=== PATIENT | female | born 1960 | race Caucasian/White ===

== ENCOUNTER 2024-02-25 06:10 | Day surgery (SDC) | payer MEDICARE, SELFPAY ==
[2024-02-20 14:08] VITALS: BMI 28.3
[2024-02-25] MEDS: Tetracaine HCl/PF 0.5% Oph Sol 4 ML DROPS 1 DROP EYE-LEFT (06:39)
[2024-02-25] MEDS: Cyclopentolate 1 % Ophth Sol 2 ML DRPBTL 1 DROP EYE-LEFT ×3 (06:40→06:56)
[2024-02-25] MEDS: Tropicamide 1 % Ophth Sol 3 ML BTL 1 DROP EYE-LEFT ×3 (06:42→06:58)
[2024-02-25] MEDS: Ketorolac Tromethamine 0.5% Op 10 ML DROPS 1 DROP EYE-LEFT ×3 (06:44→07:00)
[2024-02-25] MEDS: Phenylephrine HCL 2.5% Oph SoL 2 ML BOTTLE 1 DROP EYE-LEFT ×3 (06:46→07:02)
[2024-02-25 06:54] VITALS: BP 165/96; PULSE 80; RESP 16; TEMP 36.7; O2SAT 95
[2024-02-25] MEDS: Lactated Ringers 1,000 ML 80 ML IVCONT (06:59)
--- NOTE | 2024-02-25 07:07 | P.CONAN_ITS ---
[facility] Past Medical History Medical History Arthritis Seasonal allergies Umbilical hernia Hiatal hernia History of endometrial biopsy History of cystocele Paraesophageal hernia Low back pain Iron deficiency anemia due to chronic blood loss Hypothyroidism Hypertension Hyperlipidemia Hemorrhoid Depression Cricopharyngeal dysphagia GERD (gastroesophageal reflux disease) Cataracts, bilateral Surgical History Surgical History Hx of breast biopsy Hx of vaginal hysterectomy Hx of colonoscopy Hx of tubal ligation Hx of arthroscopy of knee History of repair of rectocele (~2020) History of esophagogastroduodenoscopy (EGD) History of Problems with Anesthesia: No Social History Social History Are you a primary adult daycare coordinator to a significant other at home: No Do you presently have visiting nurse or other home services: No Patient Tobacco Use Status: Never used Tobacco Use of substances other than those prescribed or required for medical reasons: No Have you been hit, kicked, punched, or otherwise hurt by someone within the past year? If so, by whom?: No Are you DNR?: No Advance Directives: No Advance Directives Information Provided: Yes Advance Directives on File: No Recently lost weight without trying: No Nutrition Risks: No Nutritional Risk Poor oral hygiene: No Meds Allergies Allergy/AdvReac Type Severity Reaction Status Date / Time codeine [CODEINE] Allergy Severe nausea, Verified 02/25/24 06:37 vomiting, headache heparin Allergy Severe Hives, Verified 02/25/24 06:37 itching morphine [MORPHINE] Allergy Severe hives, Verified 02/25/24 06:37 itching Active Medications: Current Medications Lactated Ringer's (Lr) 1,000 mls @ 80 mls/hr IVCONT .[id number] Last Admin: 02/25/24 06:59 Dose: 80 mls/hr Povidone Iodine (Povidone Iodine 5 % Ophth Soln 30 Ml Bottle) 1 appl EYE-LEFT PREOP PRN PRN Reason: Pre-Op Surgical Implant Prophy Home Medications ?Medication ?Instructions ?Recorded ?Confirmed ?Last Taken ?Type dicyclomine 10 mg capsule 10 mg PO TID 02/20/24 02/20/24 Unknown History estradiol 0.0375 mg/24 hr 1 patch topical 2XW 02/20/24 02/20/24 Unknown History semiweekly transdermal patch famotidine 20 mg tablet (Pepcid) 20 mg PO BEDTIME PRN Gastric Reflux 02/20/24 02/20/24 Unknown History levothyroxine 150 mcg tablet 150 mcg PO DAILY 02/20/24 02/25/24 02/25/24 History lisinopril 20 mg tablet 20 mg PO DAILY 02/20/24 02/20/24 Unknown History omeprazole 20 mg tablet,delayed 20 mg PO DAILY 02/20/24 02/25/24 02/25/24 History release sertraline 50 mg tablet 75 mg PO DAILY 02/20/24 02/25/24 02/25/24 History Exam Height,Weight and Vital Signs: Height 5 ft 4 in Weight 74.843 kg Last Vital Signs Temp 98.1 F 02/25/24 06:54 Pulse 80 02/25/24 06:54 Resp 16 02/25/24 06:54 BP 165/96 H 02/25/24 06:54 Pulse Ox 95 02/25/24 06:54 O2 Del Method Room Air 02/25/24 06:54 Airway Mallampati Class: II TM Dist: >3cm Neck ROM: Full Loose/Missing/Broken Teeth: No Heart: RRR Lungs: CTA Assessment and Plan Assessment Anesthesia Assessment: Anesthesia Plan Discussed and Chart Reviewed Final Anesthetic Review History of Problems with Anesthesia: No NPO: Yes ASA Class: II Final Preanesthetic Review: Meds/Allgs Chart Reviewed, Consent Obtained/Reviewed and Anes Risks/Benef Reviewed Patient Risk: Low Procedure Risk: Low Anesthetic Plan Anesthetic Plan: MAC: Disposition: Standard PACU
--- NOTE | 2024-02-25 07:25 | MHC.SHP ---
Pre-Procedural Eval Section A - 24 Hr Update-Section A only Date of Service: 02/25/24 The patient is an INPATIENT: No Changes since office visit: No Cold of Flu in the past 2 weeks, No New Medical Problems, No Changes in Medication and No Patient answered all questions The patient has been examined within 24 hours of the surgical procedure. The History & Physical has been completed within 30 days and I have reviewed it.: Yes Section B - Complete if H&P > 30 days Chief Complaint: Age-related nuclear cataract, left eye Allergies: Allergies Allergy/AdvReac Type Severity Reaction Status Date / Time codeine [CODEINE] Allergy Severe nausea, Verified 02/25/24 06:37 vomiting, headache heparin Allergy Severe Hives, Verified 02/25/24 06:37 itching morphine [MORPHINE] Allergy Severe hives, Verified 02/25/24 06:37 itching Plan Diagnosis/Plan: Unchanged I have reviewed the history and physical and performed a pertinent physical examination on my patient. No changes have occurred unless specified. Time Spent With Patient Time: Total time managing care of this patient today ____ minutes.
--- NOTE | 2024-02-25 07:26 | HO.PNOPHT ---
Ophthalmology Procedure Procedure Date of Service: 02/25/24 Ophthalmology Viscoelastic: Healon Duet Dual Pack Pro Ophthalmology Lenses: IOL Acrysof MP - MA60AC (21) Procedure Notes: PREOPERATIVE DIAGNOSIS: Decreased visual acuity left eye secondary to cataract POSTOPERATIVE DIAGNOSIS: Same PROCEDURE: Left cataract extraction with intraocular lens insertion SURGEON: Rudi Miramontes M.D. ANESTHESIA: Topical/MAC ESTIMATED BLOOD LOSS: None COMPLICATIONS: None After obtaining informed consent, the patient was brought to the operation room suite and placed in the supine position. After adequate sedation per anesthesia, topical drops of Tetracaine were given to the left eye. The eye was then prepped and draped in the usual sterile fashion. The operating room microscope was then positioned over the operative eye and a lid speculum placed. A paracentesis was created. Viscoelastic was then instilled into the anterior chamber. A three plane incision was then created temporally, utilizing a 2.85 mm keratome. Capsulotomy forceps were then utilized to create a circular tear capsulotomy. Hydrodissection and hydrodelineation were carried out until adequate mobilization of the nucleus occurred. Phacoemulsification was then utilized to remove the dense central nucleus followed by removal of the cortical material utilizing the automated aspiration irrigation unit. Viscoat elastic was instilled into the posterior capsular bag followed by placement of a posterior chamber intraocular lens without difficulty. The residual Viscoat elastic was then removed utilizing the automated IA machine. The wound was check and found to be watertight. The patient tolerated the procedure well and the lid speculum was removed. Intracameral injection of Vigamox 0.1 mL followed by a subtenon injection of Kenalog-40 0.2 mL were administered. The patient will be seen in the a.m.
[2024-02-25 08:04] VITALS: BP 152/96; PULSE 72; RESP 17; TEMP 36.2; O2SAT 94
== END 2024-02-25 08:09 | disposition home or self-care (01) ==
PROVIDERS: PCP Internal Medicine; Visit Provider Ophthalmology
PROC: (CPT 66985; principal; 2024-02-25 07:30)
DX: H25.12 Age-related nuclear cataract, left eye (principal); H52.4 Presbyopia; H35.09 Other intraretinal microvascular abnormalities; H18.413 Arcus senilis, bilateral; H43.393 Other vitreous opacities, bilateral; H35.372 Puckering of macula, left eye; I10 Essential (primary) hypertension; E78.00 Pure hypercholesterolemia, unspecified; E07.9 Disorder of thyroid, unspecified; Z79.899 Other long term (current) drug therapy; Z88.5 Allergy status to narcotic agent; Z88.8 Allergy status to other drugs, medicaments and biological substances
CPT/HCPCS: 66984; J2250; J3010; J3301; V2630

== ENCOUNTER 2024-03-10 06:56 | Day surgery (SDC) | payer MEDICARE, SELFPAY ==
[2024-02-20 14:11] VITALS: BMI 28.3
--- NOTE | 2024-03-07 10:16 | P.CONAN_ITS ---
Documented by User: Tatiana Hurd NP 03/07/24 10:16 HPI - Anesthesia Eval Consult details Narrative: 64yo F for Right Cataract Extraction IOL Insertion Left eye 02/25/24: Fent 50, Midaz 2 PMFSH Past Medical History Medical History Arthritis Seasonal allergies Umbilical hernia Hiatal hernia History of endometrial biopsy History of cystocele Paraesophageal hernia Low back pain Iron deficiency anemia due to chronic blood loss Hypothyroidism Hypertension Hyperlipidemia Hemorrhoid Depression Cricopharyngeal dysphagia GERD (gastroesophageal reflux disease) Cataracts, bilateral Surgical History Surgical History H/O left cataract extraction (02/25/24) Hx of breast biopsy Hx of vaginal hysterectomy Hx of colonoscopy Hx of tubal ligation Hx of arthroscopy of knee History of repair of rectocele (~2020) History of esophagogastroduodenoscopy (EGD) History of Problems with Anesthesia: No Social History Social History Are you a primary urgent care nurse practitioner to a significant other at home: No Do you presently have visiting nurse or other home services: No Patient Tobacco Use Status: Never used Tobacco Use of substances other than those prescribed or required for medical reasons: No Have you been hit, kicked, punched, or otherwise hurt by someone within the past year? If so, by whom?: No Are you DNR?: No Advance Directives: No Advance Directives Information Provided: Yes Advance Directives on File: No Recently lost weight without trying: No Poor oral hygiene: No Meds Allergies Allergy/AdvReac Type Severity Reaction Status Date / Time codeine [CODEINE] Allergy Severe nausea, Verified 02/25/24 06:37 vomiting, headache heparin Allergy Severe Hives, Verified 02/25/24 06:37 itching morphine [MORPHINE] Allergy Severe hives, Verified 02/25/24 06:37 itching Home Medications ?Medication ?Instructions ?Recorded ?Confirmed ?Last Taken ?Type dicyclomine 10 mg capsule 10 mg PO TID 02/20/24 02/20/24 Unknown History estradiol 0.0375 mg/24 hr 1 patch topical 2XW 02/20/24 02/20/24 Unknown History semiweekly transdermal patch famotidine 20 mg tablet (Pepcid) 20 mg PO BEDTIME PRN Gastric Reflux 02/20/24 02/20/24 Unknown History levothyroxine 150 mcg tablet 150 mcg PO DAILY 02/20/24 02/25/24 03/10/24 History lisinopril 20 mg tablet 20 mg PO DAILY 02/20/24 02/20/24 Unknown History omeprazole 20 mg tablet,delayed 20 mg PO DAILY 02/20/24 02/25/24 03/10/24 History release sertraline 50 mg tablet 75 mg PO DAILY 02/20/24 02/25/24 03/10/24 History Exam Height,Weight and Vital Signs: Height 5 ft 4 in Weight 74.843 kg Assessment and Plan Assessment Anesthesia Assessment: Chart Reviewed Final Anesthetic Review History of Problems with Anesthesia: No Documented by User: Alysia Suarez MD 03/10/24 07:47 PMFSH Past Medical History Medical History Arthritis Seasonal allergies Umbilical hernia Hiatal hernia History of endometrial biopsy History of cystocele Paraesophageal hernia Low back pain Iron deficiency anemia due to chronic blood loss Hypothyroidism Hypertension Hyperlipidemia Hemorrhoid Depression Cricopharyngeal dysphagia GERD (gastroesophageal reflux disease) Cataracts, bilateral Surgical History Surgical History H/O left cataract extraction (02/25/24) Hx of breast biopsy Hx of vaginal hysterectomy Hx of colonoscopy Hx of tubal ligation Hx of arthroscopy of knee History of repair of rectocele (~2020) History of esophagogastroduodenoscopy (EGD) Social History Social History Are you a primary urgent care nurse practitioner to a significant other at home: No Do you presently have visiting nurse or other home services: No Patient Tobacco Use Status: Never used Tobacco Use of substances other than those prescribed or required for medical reasons: No Have you been hit, kicked, punched, or otherwise hurt by someone within the past year? If so, by whom?: No Are you DNR?: No Advance Directives: No Advance Directives Information Provided: Yes Advance Directives on File: No Recently lost weight without trying: No Poor oral hygiene: No Meds Allergies Allergy/AdvReac Type Severity Reaction Status Date / Time codeine [CODEINE] Allergy Severe nausea, Verified 02/25/24 06:37 vomiting, headache heparin Allergy Severe Hives, Verified 02/25/24 06:37 itching morphine [MORPHINE] Allergy Severe hives, Verified 02/25/24 06:37 itching Home Medications ?Medication ?Instructions ?Recorded ?Confirmed ?Last Taken ?Type dicyclomine 10 mg capsule 10 mg PO TID 02/20/24 02/20/24 Unknown History estradiol 0.0375 mg/24 hr 1 patch topical 2XW 02/20/24 02/20/24 Unknown History semiweekly transdermal patch famotidine 20 mg tablet (Pepcid) 20 mg PO BEDTIME PRN Gastric Reflux 02/20/24 02/20/24 Unknown History levothyroxine 150 mcg tablet 150 mcg PO DAILY 02/20/24 02/25/24 03/10/24 History lisinopril 20 mg tablet 20 mg PO DAILY 02/20/24 02/20/24 Unknown History omeprazole 20 mg tablet,delayed 20 mg PO DAILY 02/20/24 02/25/24 03/10/24 History release sertraline 50 mg tablet 75 mg PO DAILY 02/20/24 02/25/24 03/10/24 History Exam Airway Mallampati Class: II TM Dist: >3cm Neck ROM: Full Loose/Missing/Broken Teeth: No Heart: RRR Lungs: CTA Assessment and Plan Assessment Anesthesia Assessment: Anesthesia Plan Discussed Final Anesthetic Review NPO: Yes ASA Class: II Final Preanesthetic Review: Meds/Allgs Chart Reviewed, Consent Obtained/Reviewed and Anes Risks/Benef Reviewed Patient Risk: Low Procedure Risk: Low Anesthetic Plan Anesthetic Plan: MAC: Disposition: Standard PACU
[2024-03-10 07:10] VITALS: BP 131/98; PULSE 81; RESP 20; TEMP 36.4; O2SAT 96
[2024-03-10 07:22] VITALS: BMI 28.3
[2024-03-10] MEDS: Lactated Ringers 500 ML 50 ML IV (07:28)
--- NOTE | 2024-03-10 07:31 | PC.NURSE ---
meds documented on sheet all drop given unable to activate meds
--- NOTE | 2024-03-10 08:52 | P.PCNO_ITS ---
Ophthalmology Procedure Procedure Date of Service: 03/10/24 Ophthalmology Viscoelastic: Healon Duet Dual Pack Pro Ophthalmology Lenses: IOL Acrysof MP - MA60AC (21) Procedure Notes: PREOPERATIVE DIAGNOSIS: Decreased visual acuity right eye secondary to cataract POSTOPERATIVE DIAGNOSIS: Same PROCEDURE: Right cataract extraction with intraocular lens insertion SURGEON: Rudi Miramontes M.D. ANESTHESIA: Topical/MAC ESTIMATED BLOOD LOSS: None COMPLICATIONS: None After obtaining informed consent, the patient was brought to the operating room suite and placed in the supine position. After adequate sedation per anesthesia, topical drops of Tetracaine were given to the right eye. The eye was then prepped and draped in the usual sterile fashion. The operating room microscope was then positioned over the operative eye and a lid speculum placed. A paracentesis was created. Viscoelastic was then instilled into the anterior chamber. A three plane incision was then created temporally, utilizing a 2.85 mm keratome. Capsulotomy forceps were then utilized to create a circular tear capsulotomy. Hydrodissection and hydrodelineation were carried out until adequate mobilization of the nucleus occurred. Phacoemulsification was then utilized to remove the dense central nucl eus followed by removal of the cortical material utilizing the automated aspiration irrigation unit. Viscoelastic was instilled into the posterior capsular bag followed by placement of a posterior chamber intraocular lens without difficulty. The residual Viscoelastic was then removed utilizing the automated IA machine. The wound was checked and found to be watertight. The patient tolerated the procedure well and the lid speculum was removed. Intracameral injection of Vigamox 0.1 mL followed by a subtenon injection of Kenalog-40 0.2 mL were administered. The patient will be seen in the a.m.
--- NOTE | 2024-03-10 08:52 | MHC.SHP ---
Pre-Procedural Eval Section A - 24 Hr Update-Section A only Date of Service: 03/10/24 The patient is an INPATIENT: No Changes since office visit: No Cold of Flu in the past 2 weeks, No New Medical Problems, No Changes in Medication and No Patient answered all questions The patient has been examined within 24 hours of the surgical procedure. The History & Physical has been completed within 30 days and I have reviewed it.: Yes Section B - Complete if H&P > 30 days Chief Complaint: Age-related nuclear cataract, right eye Allergies: Allergies Allergy/AdvReac Type Severity Reaction Status Date / Time codeine [CODEINE] Allergy Severe nausea, Verified 02/25/24 06:37 vomiting, headache heparin Allergy Severe Hives, Verified 02/25/24 06:37 itching morphine [MORPHINE] Allergy Severe hives, Verified 02/25/24 06:37 itching Plan Diagnosis/Plan: Unchanged I have reviewed the history and physical and performed a pertinent physical examination on my patient. No changes have occurred unless specified. Time Spent With Patient Time: Total time managing care of this patient today ____ minutes.
[2024-03-10 09:15] VITALS: BP 123/85; PULSE 77; RESP 16; TEMP 36.2; O2SAT 97
== END 2024-03-10 09:21 | disposition home or self-care (01) ==
PROVIDERS: PCP Internal Medicine; Visit Provider Ophthalmology
PROC: (CPT 66985; principal; 2024-03-10 08:20)
DX: H25.11 Age-related nuclear cataract, right eye (principal); H52.4 Presbyopia; H35.09 Other intraretinal microvascular abnormalities; H18.413 Arcus senilis, bilateral; H43.393 Other vitreous opacities, bilateral; H35.372 Puckering of macula, left eye; I10 Essential (primary) hypertension; E78.00 Pure hypercholesterolemia, unspecified; E07.9 Disorder of thyroid, unspecified; K21.9 Gastro-esophageal reflux disease without esophagitis; Z79.899 Other long term (current) drug therapy; Z88.5 Allergy status to narcotic agent; Z88.8 Allergy status to other drugs, medicaments and biological substances
CPT/HCPCS: 66984; J2250; J3010; J3301; V2630